=== PATIENT | female | born 1975 | race Asian ===

== ENCOUNTER 2019-09-16 05:52 | Day surgery (SDC) | payer OTHER ==
[~2019-09-16] VITALS: Ht 149.9 cm; Wt 42.2 kg
[~2019-09-16 05:52] MED LIST: ALPR0.5T PO; LACTATED RINGERS 1,000 ML IV SCH
[2019-09-16 06:17] LABS: UCG SCREEN NEGATIVE
[2019-09-16] MEDS ORDERED: SKIN ADHESIVE 0.7 GM EA TOP ONE (07:12)
[2019-09-16] MEDS ORDERED: ROCURONIUM BROMIDE 10MG/ML VIAL 5ML IV ONE (07:28)
[2019-09-16] MEDS ORDERED: NEOSTIGMINE METHYLSULFATE 1MG/ML 10 ML VIAL ONE (07:28)
[2019-09-16] MEDS ORDERED: FENTANYL CITRATE/PF 50MCG/ML 2ML VIAL ONE (07:28)
[2019-09-16] MEDS ORDERED: METOCLOPRAMIDE HCL 10MG/2ML VIAL ONE (07:29)
[2019-09-16] MEDS ORDERED: LIDOCAINE HCL/PF 1% 10 MG/ML 5ML VIAL ONE (07:29)
[2019-09-16] MEDS ORDERED: SODIUM CHLORIDE 0.9% 10ML VIAL ONE (07:29)
[2019-09-16] MEDS ORDERED: CEFAZOLIN SODIUM 1000MG/VIAL ONE (07:29)
[2019-09-16] MEDS ORDERED: ONDANSETRON HCL 4MG/2ML INJ ONE (07:29)
[2019-09-16] MEDS ORDERED: SUCCINYLCHOLINE CHLORIDE 200MG/10ML IV ONE (07:29)
[2019-09-16] MEDS ORDERED: GLYCOPYRROLATE 0.2 MG/ML 2ML VIAL ONE (07:29)
[2019-09-16] MEDS ORDERED: PROPOFOL 200MG/20ML VIAL IV ONE (07:29)
[2019-09-16] MEDS ORDERED: MIDAZOLAM HCL 2 MG/2 ML VIAL ONE (07:29)
[2019-09-16] MEDS ORDERED: ONDANSETRON HCL 4MG/2ML INJ IV PRN (07:30)
[2019-09-16] MEDS ORDERED: MORPHINE SULFATE 2 MG/ML CPJ (NOT FOR IM USE) IV PRN (07:30)
[2019-09-16] MEDS ORDERED: MEPERIDINE HCL/PF 25MG/ML CPJ IV PRN ×2 (07:30)
[2019-09-16] MEDS ORDERED: SODIUM CHLORIDE 0.9% 1,000 ML IV ONE (07:30)
[2019-09-16] MEDS ORDERED: HYDROMORPHONE HCL/PF 2MG/ML CPJ IV PRN (07:30)
[2019-09-16] MEDS ORDERED: ACETAMINOPHEN 325MG TABLET PO PRN (09:00)
[2019-09-16] MEDS ORDERED: HYDROCODONE/ACETAMINOPHEN 5/325MG TABLET PO PRN (09:00)
== END 2019-09-16 10:15 | disposition home or self-care (01) ==
LOC: OR 05:52
PROVIDERS: ATTEND Obstetrics & Gynecology
DX: N93.8 Other specified abnormal uterine and vaginal bleeding (principal); Z79.899 Other long term (current) drug therapy; Z98.890 Other specified postprocedural states
CPT/HCPCS: 58563; 81025; J0330; J0690; J2250; J2405; J2704; J2765; J3010; J3490; J2710